=== PATIENT | female | born 1975 | race Caucasian/White ===

== ENCOUNTER → 2018-09-23 | Outpatient (CLI) | payer BC ==
[~2018-09-23] MED LIST: ATENOLOL50 MG PO; CRYSELLE1 EACH PO; IOPAMIDOL 370 MG/ML 200 ML INFUS..BTL INJ ONE; LEXAPRO10 MG PO; LISINOPRIL30 MG PO; LORAZEPAM2 MG PO; SODIUM CHLORIDE 0.9% 50ML 50 ML ONE
[2018-09-23 13:41] LABS: BLOOD UREA NITROGEN 9 mg/dL (7-26); BUN/CREATININE RATIO 12 (6-25); CREATININE, SERUM 0.73 mg/dL (0.57-1.11); EST GLOMERULAR FILTRATION RATE > 60 ML/MIN (60-)
--- NOTE | 2018-09-23 14:46 | Diagnostic Imaging Report ---
EXAM: CT Chest WITH contrast- Pulmonary Embolism Protocol INDICATION: Persistent cough. COMPARISON: None TECHNIQUE: Chest was scanned utilizing a multidetector helical scanner from the lung apex through the level of the diaphragm after administration of IV contrast. Thin section reconstructions were obtained with special concentration on the pulmonary arteries. Coronal and sagittal reformations were obtained. Pulmonary embolism protocol was performed. IV CONTRAST: 100 cc of Isovue 370 RADIATION DOSE: Total DLP: 540.1 mGy*cm Dose modulation, iterative reconstruction, and/or weight based adjustment of the mA/kV was utilized to reduce the radiation dose to as low as reasonably achievable. COMPLICATIONS: None FINDINGS: LINES/ TUBES: None. PULMONARY ARTERIES: No filling defect is identified within the pulmonary arteries to the segmental level. The subsegmental pulmonary arteries are not well opacified. Main pulmonary artery measures 2.8 cm in diameter. LUNGS AND AIRWAYS: The central airways are patent. Diffuse mild bronchial wall thickening. No evidence of pneumonia or pulmonary edema. Minimal dependent atelectasis. PLEURA: The pleural spaces are clear. HEART AND MEDIASTINUM: Limited evaluation of the thyroid gland due to streak artifact. No mediastinal, hilar or axillary lymphadenopathy. There is a small amount of likely residual thymic soft tissue within the anterior mediastinum (series 2, image 43; 13 HU). No convex border. No specific evidence of solid mass. The heart is normal in size.. There is no pericardial effusion. . UPPER ABDOMEN: Limited contrast-enhanced views of the upper abdomen. Partially seen post surgical changes involving the stomach. BONES: No acute osseous abnormality. No suspicious lytic or blastic lesions. SOFT TISSUES: Unremarkable. IMPRESSION: No evidence of pulmonary embolism to the level of the segmental pulmonary arteries. Diffuse mild bronchial wall thickening, which may reflect bronchitis in the setting of cough. Likely small amount of residual thymic soft tissue, which can be normal variant. No specific evidence of solid mass. Signed by: Dr. Arjun Wolfe MD on 09/23/2018 2:43 PM
== END ==
LOC: CT 11:57
PROVIDERS: ATTEND Family Medicine
DX: R05 Cough (principal)
CPT/HCPCS: 36415; 71260; 81025; 82565; 84520; Q9967

== ENCOUNTER → 2019-03-19 | Day surgery (SDC) | payer BC ==
[~2019-03-19] MED LIST changes: +DEPO-PROVE150 MG/11 INJ; +FENTANYL CITRATE/PF 100MCG/2 ML INJ ONE; +GABAPENTIN300 MG PO; +HYOSCYAMINE 0.125 MG TAB ONE; -IOPAMIDOL 370 MG/ML 200 ML INFUS..BTL INJ ONE; +LORAZEPAM PO; +METOPROLOL SUCC50 MG PO; +MIDAZOLAM HCL 2 MG/2 ML VIAL ONE; +PROPOFOL IV EMULSION 10 MG/ML 50 ML VIAL ONE; -SODIUM CHLORIDE 0.9% 50ML 50 ML ONE
--- OUTSIDE RECORDS SUMMARY | 2019-03-19 12:18 | XMS REPORT ---
Author Author [facility] Address Unknown Phone Unavailable Care Team Providers [employer] Sales Engineer Name Role Phone MARIE FONTAINE Unavailable Unavailable Problems This patient has no known problems. Allergies, Adverse Reactions, Alerts This patient has no known allergies or adverse reactions. Medications This patient has no known medications. Results Test Description Test Time Test Comments Text Results Atomic Results Result Comments CT CHEST W 2018-09-23 14:33:00 [facility] [address] [address] Patient Name: PROSPER COX MR #: [id number] : 1975 Age/Sex: 43/F Req #: [id number] [facility] Physician: Ordered by: MARIE FONTAINE DO Report #: [id number] Location: CT Room/Bed: Procedure: [id number] CT/CT CHEST W Exam Date: Exam Time: REPORT STATUS: Signed EXAM: CT Chest WITH contrast- Pulmonary Embolism Protocol INDICATION: Per sistent cough. COMPARISON: None TECHNIQUE: Chest was scanned utilizing a multidetector helical scanner from the lung apex through the level of the diaphragm after administration of IV contrast. Thin section reconstructions were obtained with special concentration on the pulmonary arteries. Coronal and sagittal reformations were obtained. Pulmonary embolism protocol was performed. IV CONTRAST: 100 cc of Isovue 370 RADIATION DOSE: Total DLP: 540.1 mGy*cm Dose modulation, iterative reconstruction, and/or weight based adjustment of the mA/kV was utilized to reduce the radiation dose to as low as reasonably achievable. COMPLICATIONS: None FINDINGS: LINES/ TUBES: None. PULMONARY ARTERIES: No filling defect is identified within the pulmonary arteries to the segmental level. The subsegmental pulmonary arteries are not well opacified. Main pulmonary artery measures 2.8 cm in diameter. LUNGS AND AIRWAYS: The central airways are patent. Diffuse mild bronchial wall thickening. No evidence of pneumonia or pulmonary edema. Minimal dependent atelectasis. PLEURA: The pleural spaces are clear. HEART AND MEDIASTINUM: Limited evaluation of the thyroid gland due to streak artifact. No mediastinal, hilar or axillary lymphadenopathy. There is a small amount of likely residual thymic soft tissue within the anterior mediastinum (series 2, image 43; 13 HU). No convex border. No specific evidence of solid mass. The heart is normal in size.. There is no pericardial effusion. . UPPER ABDOMEN: Limited contrast-enhanced views of the upper abdomen. Partially seen post surgical changes involving the stomach. BONES: No acute osseous abnormality. No suspicious lytic or blastic lesions. SOFT TISSUES: Unremarkable. IMPRESSION: No evidence of pulmonary embolism to the level of the segmental pulmonary arteries. Diffuse mild bronchial wall thickening, which may reflect bronchitis in the setting of cough. Likely small amount of residual thymic soft tissue, which can be normal variant. No specific evidence of solid mass. Signed by: Dr. Jodee Wilkins MD on 09/23/2018 2:43 PM Dictated By: JODEE WILKINS MD 1443 Transcribed By: CHETAN on 09/23/18 1443 COPY TO: MARIE FONTAINE DO [facility] MAMM BILATERAL CROW CAD DIGITAL 2018-06-25 09:12:52 - [facility] MAMM BILATERAL CROW CAD DIGITALBILATERAL DIGITAL SCREENING MAMMOGRAM 3D/2D WITH CAD: 06/25/2018CLINICAL: Asymptomatic. Digital breast tomosynthesis was performed in addition to routine CC and MLO views. Current mammographic images were evaluated by either a AMENDIA M-Vu or a [employer] ImageChecker CAD (computer aided detection system). Comparison is made to exams dated 09/17/2012 mammogram and mammogram - [facility]-. There are scattered fibroglandular tissues in both breasts. No suspicious mass, architectural distortion, malignant type calcification, or lymph node abnormality detected. Breast architecture is stable compared to prior exams.IMPRESSION: NEGATIVEThere is no mammographic evidence of malignancy. Resume annual screening mammography in one year. Jesse Baxter M.D. ss/penrad:06/25/2018 09:12:52 [place] Parent: Jessica Jhaveri FW, [facility]-FWletter sent: BIRADS 1-2 Normal Mammogram BI-RADS: 1 Negative
[2019-03-19 17:05] VITALS: BP 138/85
[2019-03-19 17:05] LABS: WBC,FECAL (FECAL LACTOFERRIN) NEGATIVE (NEGATIVE)
--- NOTE | 2019-03-19 19:50 | Operative Report ---
DATE OF PROCEDURE: 03/19/2019 SURGEON: Yasir Hooper MD PROCEDURE: Esophagogastroduodenoscopy and colonoscopy with biopsies. INDICATIONS FOR EGD: Dyspepsia. INDICATIONS FOR COLONOSCOPY: Loose stools, history of bright red blood per rectum, fecal urgency. MEDICATIONS: The patient was done under MAC, please see anesthesiologist's note. PROCEDURE IN DETAIL: With the patient in left lateral decubitus position, flexible fiberoptic Olympus gastroscope was introduced into the esophagus under direct visualization without any difficulty. There was some patchy erythema noted in distal esophagus. The scope was then advanced into the stomach traversing a small hiatal hernia. The patient apparently is status post Kelvin-en-Y. Anastomosis was intact without evidence of marginal ulcers. The enteric loop was patent. The scope was subsequently withdrawn. The patient tolerated the procedure well. IMPRESSION: 1. Distal esophagitis. 2. Hiatal hernia. 3. Status post Kelvin-en-Y. Anastomosis intact. PLAN: Initiate Protonix 40 mg one p.o. q.a.m. a.c. PROCEDURE IN DETAIL: The patient was then turned around after adequate lubrication of the anal canal, flexible fiberoptic Olympus colonoscope was inserted into the rectum with ease and advanced all the way to the cecum. Prep overall was suboptimal with scattered retained stools. The ileocecal valve was intubated and the scope was advanced into the terminal ileum. Biopsies were obtained. The scope was then withdrawn back into the colon and it was then withdrawn slowly whatever was visualized. The mucosa overlying the cecum, ascending colon, transverse colon grossly appeared to be within normal limits. There was some patchy mild inflammatory changes noted in the left colon. Random biopsies were obtained. The scope was then retroflexed into the distal rectum and small internal hemorrhoids were noted, none of which was actively bleeding. The scope was then straightened out, it was subsequently withdrawn after securing an adequate stool specimen that was sent for the appropriate stool studies. The patient tolerated the procedure well. IMPRESSION: 1. Mild patchy left-sided colitis. 2. Internal hemorrhoids, none actively bleeding. PLAN: Follow up histology. Follow up stool studies. Initiate Bentyl 20 mg one p.o. t.i.d. VSL#3 one p.o. daily. MD JENNIFER Martinez/TACOL /[id number] cc: Jeffrey Aguayo DO
[2019-03-20 14:58] LABS: C DIFFICILE TOXIN A&B AMP PROB NEGATIVE (NEGATIVE)
== END | disposition home or self-care (01) ==
LOC: OR 12:05
PROVIDERS: ATTEND Internal Medicine Gastroenterology
DX: K51.50 Left sided colitis without complications (principal); K21.9 Gastro-esophageal reflux disease without esophagitis; K20.9 Esophagitis, unspecified; K44.9 Diaphragmatic hernia without obstruction or gangrene; Z98.84 Bariatric surgery status; R11.10 Vomiting, unspecified; K64.8 Other hemorrhoids; I10 Essential (primary) hypertension; E66.01 Morbid (severe) obesity due to excess calories; F41.9 Anxiety disorder, unspecified; F32.9 Major depressive disorder, single episode, unspecified; Z01.810 Encounter for preprocedural cardiovascular examination; Z68.43 Body mass index [BMI] 50.0-59.9, adult; Z80.0 Family history of malignant neoplasm of digestive organs
CPT/HCPCS: 43235; 45380; 81025; 83630; 83993; 87045; 87177; 87328; 87493; 93005; J2250; J2704; J3010; 45378